=== PATIENT | female | born 1955 | race Caucasian/White ===

== ENCOUNTER 2018-04-18 11:15 | Emergency (ER) | payer OTHER ==
[2018-04-18 11:29] VITALS: BP 135/63; TEMP 97.8; BMI 47.2
--- NOTE | 2018-04-18 12:51 | CT ---
EXAM: CT head without contrast. HISTORY: Initial presentation for head trauma. COMPARISON: None available. TECHNIQUE: Multiple axial images of the brain were obtained from the skull base through the vertex w ithout intravenous contrast. Multiplanar reformats were provided. FINDINGS: There is no intracranial hemorrhage or extraaxial collection. The mccoy-white differentiat ion is maintained without evidence for acute large vascular territory infarction. The cortical sulci and basal cisterns are well visualized. There is no hydrocephalus, mass effect, or midline shift. The paranasal sinuses and mastoid air cells are clear. The calvarium is intact. IMPRESSION: No acute intracranial abnormality.
--- NOTE | 2018-04-18 12:55 | DI ---
Exam: Two views of the left forearm. Comparison: None available. Reason for exam: Fall. FINDINGS: No acute fracture or malalignment. The cortices are intact. No unexplained calcific soft tissue density or radiopaque retained foreign body. Well marginated density seen adjacent to the ul yuri styloid likely from previous trauma or degenerative disease. Impression: 1. No acute fracture or malalignment in the left radius or ulna. 2. Small, well marginated density adjacent to the ulnar styloid likely represent previous injury. R ecommend correlation with the site of patient's pain. If clinical concern exists, radiographs of the left wrist may be performed for further characterization.
--- NOTE | 2018-04-18 12:55 | DI ---
EXAM: Radiographs, left knee HISTORY: Initial presentation for left knee trauma. COMPARISON: None available. TECHNIQUE: Four views. FINDINGS: Bone mineralization is decreased. There is no fracture or dislocation. 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 Small superior patellar enthesophyte is present. No focal soft tissue abnormality is seen. IMPRESSION: No fracture or dislocation.
--- NOTE | 2018-04-18 13:10 | ED.PDOC ---
General ED Provider: Dr. BOGDAN ROBERTSON Chief Complaint: Fall Stated Complaint: FALL, LEFT FOREARM,LEFT KNEE, FORHEAD BRUSING Time Seen by Physician: 11:20 (SEE PHOTOS NURSE WAS PRESENT AT ALL TIMES ) Mode of Arrival: Ambulance Information Source: Patient Exam Limitations: No limitations Nursing and Triage Documentation Reviewed and Agree: Yes Does patient meet sepsis criteria?: No System Inflammatory Response Syndrome: Not Applicable Sepsis Protocol: For patient's 13 years and over: Temp is 96.8 and below OR 101 and greater Pulse >90 BPM Resp >20/minute Acutely Altered Mental Status Are patient's symptoms suggestive of a new infection, such as: -Pneumonia -Skin, Soft Tissue -Endocarditis -UTI -Bone, Joint Infection -Implantable Device -Acute Abdominal Infection -Wound Infection -Meningitis -Blood Stream Catheter Infection -Unknown Trauma/Injury Complaint Exam - Trauma Complaint/Exam Location of Pain or Injury: Reports: Head, LUE, LLE, Other (SEE PHOTOS OF ALL INJURED AREAS ) Mechanism of Injury: Reports: Fall Onset/Duration: 1 HR AGO Symptoms Are: Still present Initial Severity: Mild Current Severity: Mild Character: Reports: Aching Aggravating: Reports: Movement Alleviating: Reports: None Associated Signs and Symptoms: Reports: Bruising. Denies: LOC, Confusion, Memory loss, Lethargy, Vomiting, Bleeding, Swelling, Extremity disuse, Painful respiration, Hoarseness, Dysphagia, Hemoptysis, Significant blood loss Nexus Low Risk Criteria: No post-midline CS tender, No evidence of intoxicat., No Altered LOC, No focal neuro deficit, No distracting injuries Glascow Coma Scale (see protocol): 15 Skin Findings: Present: Normal findings Differential Diagnoses: Sprain, Strain Review of Systems - Review Of Systems Constitutional: Reports: No symptoms Eyes: Reports: No symptoms Ears, Nose, Mouth, Throat: Reports: No symptoms Respiratory: Reports: No symptoms Cardiac: Reports: No symptoms GI: Reports: No symptoms : Reports: No symptoms Musculoskeletal: Reports: No symptoms Skin: Reports: Bruising (SEE PHOTOS) Neurological: Reports: No symptoms Endocrine: Reports: No symptoms Hematologic/Lymphatic: Reports: No symptoms All Other Systems: Reviewed and Negative Past Medical History - Past Medical History Previously Healthy: Yes Endocrine: Reports: None Cardiovascular: Reports: None Respiratory: Reports: None Hematological: Reports: None Gastrointestinal: Reports: None Genitourinary: Reports: None Neuro/Psych: Reports: None Musculoskeletal: Reports: None Cancer: Reports: None Last Menstrual Period: NA - Surgical History General Surgical History: Reports: None - Family History Family History: Reports: None - Social History Smoking Status: Former smoker Hx Substance Use: No Alcohol Screening: None - Immunizations Tetanus Shot up to Date: Yes Physical Exam - Physical Exam Appearance: Well-appearing, No pain distress, Well-nourished Eyes: CLAIR, EOMI, Conjunctiva clear ENT: Ears normal, Nose normal, Oropharynx normal Respiratory: Airway patent, Breath sounds clear, Breath sounds equal, Respirations nonlabored Cardiovascular: RRR, Pulses normal, No rub, No murmur GI/: Soft, Nontender, No masses, Bowel sounds normal, No Organomegaly Musculoskeletal: Normal strength, ROM intact, No edema, No calf tenderness Skin: Warm, Dry (CONTUSION FOR HEAD, LEFT FOREARM AND KNEE ) Neurological: Sensation intact, Motor intact, Reflexes intact, Cranial nerves intact, Alert, Oriented Psychiatric: Affect appropriate, Mood appropriate Interpretation - Radiology Interpretation Radiology Interpretation By: Radiologist Radiology Results: No acute changes Exam Interpreted: CT Scan (AND KNEE FILM ALL NEGATIVE ) Re-Evaluation - Re-Evaluation Time of Re-Evaluation: 13:00 Status: Improved Vital Signs Stable: Yes Pain Level: 0 Appearance: NAD Lungs: Clear Skin: Warm and Dry Neuro: Alert and Oriented X3 CV: RRR Critical Care Note - Critical Care Note Total Time (mins): 0 Course - Course Orders, Labs, Meds: Orders Category Date Time Status CT HEAD W/O CONTRAST Stat RADS 04/18/18 11:35 Completed FOREARM, LEFT 2 VIEWS Stat RADS 04/18/18 11:41 Completed KNEE, LEFT 4 VIEWS Stat RADS 04/18/18 11:40 Completed Vital Signs: Temp Pulse Resp BP Pulse Ox 04/18/18 11:19 97.8 F 76 20 135/63 98 Departure - Departure Time of Disposition: 13:13 Disposition: HOME SELF-CARE Discharge Problem: Contusion Qualifiers: Encounter type: initial encounter Contusion area: forearm Laterality: left Qualified Code(s): S50.12XA - Contusion of left forearm, initial encounter Left knee sprain Qualifiers: Encounter type: initial encounter Involved ligament of knee: unspecified ligament Qualified Code(s): S83.92XA - Sprain of unspecified site of left knee, initial encounter Instructions: Knee Pain (ED), Contusion in Adults (ED), Head Injury (ED) Condition: Good Pt referred to PMD for follow-up: Yes IPMP verified?: No Additional Instructions: Please call your Family Physician as soon as possible to schedule a follow-up appointment. Allergies/Adverse Reactions: Allergies cyclobenzaprine [From Flexeril] Adverse Reaction (Verified 04/18/18 11:17) morphine Adverse Reaction (Verified 04/18/18 11:17) moxifloxacin [From Avelox] Adverse Reaction (Verified 04/18/18 11:17) Home Medications: Ambulatory Orders Alprazolam [Xanax] 2 mg PO TID PRN 04/18/18 Aspirin [Aspirin EC] 81 mg PO DAILY 04/18/18 Carbidopa/Levodopa [Sinemet 10-100] 1 tab PO DAILY 04/18/18 Cholecalciferol (Vitamin D3) [Vitamin D3] 5,000 unit PO DAILY 04/18/18 Clopidogrel Bisulfate [Plavix] 75 mg PO DAILY 04/18/18 Multivitamin 1 cap PO DAILY 04/18/18 Pantoprazole Sodium [Protonix] 40 mg PO DAILY 04/18/18 Pioglitazone HCl [Actos] 45 mg PO DAILY 04/18/18 Topiramate [Topamax] 50 mg PO BID 04/18/18
== END 2018-04-18 13:20 | disposition home or self-care (01) ==
LOC: ED 11:15
DX: S50.12XA Contusion of left forearm, initial encounter (principal); S83.92XA Sprain of unspecified site of left knee, initial encounter; S00.83XA Contusion of other part of head, initial encounter; W19.XXXA Unspecified fall, initial encounter; M54.2 Cervicalgia
CPT/HCPCS: 99283